=== PATIENT | female | born 1985 | race Caucasian/White ===

== ENCOUNTER 2017-04-08 11:40 | Emergency (ER) | payer OTHER ==
[~2017-04-08] VITALS: Ht 152.4 cm; Wt 68.6 kg
[~2017-04-08 11:40] MED LIST: NAPROSYN500 MG PO
[2017-04-08] MEDS ORDERED: VALIUM5 MG PO (12:22)
[2017-04-08] MEDS ORDERED: PREDNISONE20 MG PO (12:22)
[2017-04-08] MEDS ORDERED: LIDODERM 5% P1 PATCH TD (12:22)
[2017-04-08 12:33] VITALS: BP 124/70
== END 2017-04-08 12:34 | disposition home or self-care (01) ==
LOC: EME 11:40
DX: M54.42 Lumbago with sciatica, left side (principal)
CPT/HCPCS: 99281; 99284; J7512

== ENCOUNTER 2017-04-19 10:49 | Emergency (ER) | payer OTHER ==
[~2017-04-19] VITALS: Ht 152.4 cm; Wt 68.2 kg
[~2017-04-19 10:49] MED LIST changes: +LIDODERM 5% P1 PATCH TD; +PREDNISONE20 MG PO; +VALIUM5 MG PO
[2017-04-19] MEDS ORDERED: MOTRIN600 MG PO (14:54)
[2017-04-19 16:34] VITALS: BP 117/77
== END 2017-04-19 16:35 | disposition home or self-care (01) ==
LOC: EME 10:49
DX: S93.402A Sprain of unspecified ligament of left ankle, initial encounter (principal)
CPT/HCPCS: 73610; 99281; 99284